=== PATIENT | female | born 1975 | race Two or more races ===

== ENCOUNTER 2021-06-17 20:15 | Emergency (ER) | payer OTHER ==
[~2021-06-17] VITALS: Ht 157.5 cm; Wt 69.9 kg
[2021-06-17 21:18] LABS: BASOPHILS % (AUTO) 0 % (0-1); EOSINOPHILS % (AUTO) 2 % (1-7); LYMPHOCYTES % (AUTO) 36 % (22-44); MEAN CORPUSCULAR HEMOGLOBIN 30.4 pg (27.0-34.8); MEAN CORPUSCULAR HGB CONC 35.1 g/dL (32.4-35.8); MEAN PLATELET VOLUME 7.7 fL (7.4-10.4); MONOCYTES % (AUTO) 7 % (2-9); NEUTROPHILS % (AUTO) 56 % (42-75); PLATELET COUNT 272 x10^3/uL (130-400); RED BLOOD COUNT 4.49 x10^6/uL (3.82-5.3); RED CELL DISTRIBUTION WIDTH 14.3 % (9.6-15.2)
[2021-06-17 21:30] LABS: ALANINE AMINOTRANSFERASE 75 U/L (12-78); ANION GAP 11 mmol/L (5-15); CALCIUM 9.4 mg/dL (8.5-10.1); CHLORIDE 112 mmol/L (98-107); CREATININE 0.74 mg/dL (0.55-1.02)
[2021-06-17 21:34] LABS: ALKALINE PHOSPHATASE 75 U/L (45-117); BILIRUBIN,TOTAL 0.5 mg/dL (0.2-1.0); TOTAL PROTEIN 8.4 g/dL (6.4-8.2); TROPONIN I < 0.015 ng/mL (0.000-0.045)
--- NOTE | 2021-06-17 23:18 | NUR ---
PT PRESENTS TO ED WITH C/O CP X1 DAY. DESCRIBES IT PRESSURE, DENIES NAUSEA, VOMITTING, FEVER. PT A&O, RESPS EVEN AND UNLABORED, NADN.
--- NOTE | 2021-06-17 23:27 | NUR ---
ermd Ronny at bedside for eval
[2021-06-17 23:44] VITALS: BP 126/84
--- NOTE | 2021-06-18 00:19 | NUR ---
pt educated on dc instructions, verbalized understanding, ambulatory to dc desk with steady gait.
== END 2021-06-18 01:00 | disposition home or self-care (01) ==
LOC: ED 20:30
DX: R07.89 Other chest pain (principal); F41.1 Generalized anxiety disorder; Z20.822 Contact with and (suspected) exposure to COVID-19
CPT/HCPCS: 71045; 80053; 84484; 85025; 93005; 99285; U0003; U0005